=== PATIENT | male | born 1980 | race Caucasian/White ===

== ENCOUNTER 2023-12-16 11:25 | Day surgery (SDC) | payer OTHER ==
[~2023-12-16] VITALS: Ht 177.8 cm; Wt 83.7 kg
[~2023-12-16 11:25] MED LIST: COLCRYS0.6 MG PO; LR 1,000 ML IV SCH
[2023-12-16] MEDS ORDERED: ADDERALL XR20 MG PO (11:53)
[2023-12-16] MEDS ORDERED: ADDERALL5 MG PO (11:54)
[2023-12-16 12:15] VITALS: BP 122/73; PULSE 86; TEMP 97.4
[2023-12-16] MEDS ORDERED: fentaNYL 50 MCG/ML 2 ML VIAL ONE (13:45)
[2023-12-16] MEDS ORDERED: Glycopyrrolate 0.2 MG/ML 1 ML VIAL ONE (13:46)
[2023-12-16] MEDS ORDERED: Ondansetron 4 MG/2 ML VIAL ONE (13:46)
[2023-12-16] MEDS ORDERED: NS 10 ML IV ONE (13:46)
[2023-12-16] MEDS ORDERED: Lidocaine PF 2% (20 MG/ML) 5 ML VIAL ONE (13:46)
[2023-12-16] MEDS ORDERED: dexAMETHasone 10 MG/ML VIAL ONE (13:46)
[2023-12-16] MEDS ORDERED: Rocuronium 50 MG/5 ML Multi-Dose VIAL ONE (13:48)
[2023-12-16] MEDS ORDERED: Ondansetron 4 MG/2 ML VIAL IV PRN (15:00)
[2023-12-16] MEDS ORDERED: Meperidine 50 MG/ML 1 ML VIAL IV PRN (15:00)
[2023-12-16] MEDS ORDERED: hydrALAZINE 20 MG/ML 1 ML VIAL IV PRN (15:00)
[2023-12-16] MEDS ORDERED: Morphine 2 MG/1 ML VIAL [PACU/SDC ONLY] IV PRN (15:00)
[2023-12-16] MEDS ORDERED: fentaNYL 50 MCG/ML 1 ML SYRINGE/VIAL [PACU/SDC ONLY] IV PRN (15:00)
[2023-12-16] MEDS ORDERED: HYDROmorphone 1 MG/1 ML SYRINGE [PACU/SDC ONLY] IV PRN (15:00)
[2023-12-16] MEDS ORDERED: Ketorolac 30 MG/ML VIAL ONE (15:15)
[2023-12-16] MEDS ORDERED: NORCO 325 MG-51 TAB PO (15:31)
[2023-12-16] MEDS ORDERED: MOTRIN 600600 MG/TAB PO (15:31)
[2023-12-16 16:12] VITALS: BP 129/86; PULSE 96; TEMP 97.5
--- NOTE | 2023-12-16 16:12 | NUR ---
Report received from [employer]IAN. Pt returned via cart to [facility]. A&O. VSS-see flowsheet. Patent IV to right hand. Given muffin, pudding and juice per request. Denies pain or nausea. X3 surgical sites with c/d/i skin glue. Pts dad brought to room. Side rails up, call light in reach.
[2023-12-16 16:15] VITALS: BP 121/84; PULSE 88
[2023-12-16 16:30] VITALS: BP 109/79; PULSE 84
--- NOTE | 2023-12-16 16:30 | NUR ---
Not tolerating cranberry juice-asking for 'just water' instead. Given water and saltine crackers to try to settle pts stomach. VS remain stable.
[2023-12-16 16:45] VITALS: BP 112/73; PULSE 80
[2023-12-16 17:00] VITALS: BP 108/71; PULSE 89
--- NOTE | 2023-12-16 17:35 | NUR ---
Pt able to tolerate sips of fluids without emesis, but not feeling up to eating more than bites of saltines. IV removed, pressure dressing applied. Pt able to sit on side of bed and reports feeling better. Discharge teaching completed with pt and pts dad, verbalized understanding. Pt dressed and taken to private vehicle for dc home with dad driving. Pt left with all personal belongings.
== END 2023-12-16 17:38 | disposition home or self-care (01) ==
LOC: SDCO 11:25
DX: K40.90 Unilateral inguinal hernia, without obstruction or gangrene, not specified as recurrent (principal)
CPT/HCPCS: A4314; C1781; J0690; J1100; J1170; J1885; J2405; J2704; J3010; J7120